=== PATIENT | male | born 1995 | race Caucasian/White ===

== ENCOUNTER 2020-11-29 13:38 | Emergency (ER) | payer MEDICAID ==
[~2020-11-29] VITALS: Ht 188 cm; Wt 84.0 kg
[2020-11-29] MEDS ORDERED: SODIUM CHLORIDE 0.9% 1,000 ML IV ONE (14:30)
[2020-11-29] MEDS ORDERED: ONDANSETRON HCL 4MG/2ML INJ IV ONE (14:30)
[2020-11-29 15:37] LABS: *BARBITURATES SCREEN URINE NEGATIVE (NEGATIVE)
[2020-11-29 15:38] LABS: *AMPHETAMINES SCREEN URINE NEGATIVE (NEGATIVE); *BENZODIAZEPINES SCREEN URINE PRESUMTIVE POSITIVE (NEGATIVE); *COCAINE SCREEN URINE NEGATIVE (NEGATIVE); METHADONE URINE SCREEN NEGATIVE (NEGATIVE); OPIATES URINE SCREEN NEGATIVE (NEGATIVE); PHENCYCLIDINE URINE SCREEN NEGATIVE (NEGATIVE)
[2020-11-29 15:39] LABS: CANNABINOID URINE SCREEN PRESUMTIVE POSITIVE (NEGATIVE)
[2020-11-29 17:21] VITALS: BP 122/75
== END 2020-11-29 17:27 | disposition home or self-care (01) ==
LOC: ER 13:38
DX: T40.2X1A Poisoning by other opioids, accidental (unintentional), initial encounter (principal); Z90.49 Acquired absence of other specified parts of digestive tract; Y92.9 Unspecified place or not applicable
CPT/HCPCS: 36415; 80305; 80320; 93005; 96361; 96374; 99284; J2405; J7030; Z7610; G0480

== ENCOUNTER 2022-10-13 18:08 | Emergency (ER) | payer SELFPAY ==
[~2022-10-13] VITALS: Ht 188 cm; Wt 81.6 kg
[2022-10-13 18:40] VITALS: BP 118/75; PULSE 60; RESP 16; TEMP 98.5; O2SAT 99
[2022-10-13 19:24] LABS: BASOPHILS % 0.8 % (0.0-2.0); EOSINOPHILS % 4.9 % (0.0-5.0); HEMATOCRIT. 36.7 % (42.0-52.0); HEMOGLOBIN. 12.4 g/dL (14.0-18.0); LYMPHOCYTES % 26.1 % (20.0-50.0); MEAN CORPUSCULAR HEMOGLOBIN 28.5 pg (28.0-32.0); MEAN CORPUSCULAR HGB CONC 33.8 g/dL (31.0-37.0); MEAN CORPUSCULAR VOLUME 84.5 fL (80.0-94.0); MEAN PLATELET VOLUME 8.2 fl (7.4-10.4); MONOCYTES % 5.7 % (2.0-8.0); NEUTROPHILS % 62.5 % (40.0-76.0); PLATELET 289 x1000/uL (130-400); RED BLOOD CELL COUNT 4.35 mill/uL (4.7-6.1); RED CELL DISTRIBUTION WIDTH 13.5 % (11.6-14.6); WHITE BLOOD COUNT 10.1 x1000/uL (4.5-11.0)
[2022-10-13 19:29] LABS: CHLORIDE 103 mEq/L (98-107); INDEX HEMOLYSI 1 (1-3); INDEX ICTERIC 1 (1-4); INDEX LIPEMIC 1 (1-3); POTASSIUM 4.1 mEq/L (3.5-5.1); SODIUM 138 mEq/L (136-145)
[2022-10-13 19:37] LABS: ALANINE AMINOTRANSFERASE 19 IU/L (13-61); ALBUMIN 3.8 g/dL (3.4-5.0); ASPARTATE AMINOTRANSFERASE 11 IU/L (15-37); BILIRUBIN TOTAL 0.3 mg/dL (0.1-1.0); CALCIUM 9.1 mg/dL (8.5-10.1); CARBON DIOXIDE 31 mEq/L (21-32); CREATININE 0.8 mg/dL (0.6-1.3); GLUCOSE 95 mg/dL (70-105); PROTEIN TOTAL 7.4 g/dL (6.0-8.3); UREA NITROGEN BLOOD 16 mg/dL (7-21)
== END 2022-10-13 22:29 | disposition home or self-care (01) ==
LOC: ER 18:08
DX: R10.31 Right lower quadrant pain (principal); N43.3 Hydrocele, unspecified; I86.1 Scrotal varices; N50.811 Right testicular pain; F12.90 Cannabis use, unspecified, uncomplicated; Z90.49 Acquired absence of other specified parts of digestive tract
CPT/HCPCS: 36415; 76870; 80053; 85025; 93976; 99284

== ENCOUNTER 2023-10-07 09:34 | Emergency (ER) | payer SELFPAY ==
[~2023-10-07] VITALS: Ht 185.4 cm; Wt 79.0 kg
[2023-10-07 09:38] VITALS: O2SAT 99
[2023-10-07 09:56] LABS: CLARITY URINE CLEAR (CLEAR); COLOR URINE DARK YELLOW (YELLOW); GLUCOSE URINE NEGATIVE (NEGATIVE); KETONES URINE TRACE (NEGATIVE); LEUKOCYTE ESTERASE URINE NEGATIVE (NEGATIVE); NITRITE URINE NEGATIVE (NEGATIVE); OCCULT BLOOD URINE NEGATIVE (NEGATIVE); PROTEIN URINE TRACE (NEGATIVE); SPECIFIC GRAVITY URINE 1.034 (1.005-1.030)
[2023-10-07] MEDS: SODIUM CHLORIDE 0.9% 1,000 ML IV ONE (10:03)
[2023-10-07 10:08] LABS: BASOPHILS % 0.3 % (0.0-2.0); EOSINOPHILS % 2.8 % (0.0-5.0); HEMATOCRIT. 46.2 % (42.0-52.0); HEMOGLOBIN. 15.7 g/dL (14.0-18.0); LYMPHOCYTES % 16.3 % (20.0-50.0); MEAN CORPUSCULAR HEMOGLOBIN 30.4 pg (28.0-32.0); MEAN CORPUSCULAR VOLUME 89.4 fL (80.0-94.0); MEAN PLATELET VOLUME 7.9 fl (7.4-10.4); MONOCYTES % 8.8 % (2.0-8.0); NEUTROPHILS % 71.8 % (40.0-76.0); PLATELET 271 x1000/uL (130-400); RED BLOOD CELL COUNT 5.16 mill/uL (4.7-6.1); RED CELL DISTRIBUTION WIDTH 14.3 % (11.6-14.6); WHITE BLOOD COUNT 9.8 x1000/uL (4.5-11.0)
[2023-10-07] MEDS: KETOROLAC 30MG/ML VIAL IV ONE (10:08)
[2023-10-07 10:12] LABS: BACTERIA URINE 1+; SQUAMOUS EPITHELIAL CELL URINE 1+ /lpf (RARE/1+)
[2023-10-07 10:13] LABS: MUCUS URINE 2+ /lpf (NONE/TRACE); YEAST URINE NONE SEEN
[2023-10-07 10:14] LABS: CHLORIDE 103 mEq/L (98-107); POTASSIUM 3.5 mEq/L (3.5-5.1); SODIUM 138 mEq/L (136-145)
[2023-10-07 10:15] LABS: CALCIUM 9.4 mg/dL (8.7-10.4); CARBON DIOXIDE 30 mEq/L (21-32)
[2023-10-07 10:20] LABS: GLUCOSE 96 mg/dL (70-105); UREA NITROGEN BLOOD 11 mg/dL (9-23)
[2023-10-07 10:24] LABS: INR 1.1; PROTHROMBIN TIME 11.9 sec (9.6-11.0)
[2023-10-07] MEDS: HYDROCODONE/ACETAMINOPHEN 7.5/325MG TABLET PO ONE (13:59)
[2023-10-07] MEDS ORDERED: TAMS-11 MT (14:18)
[2023-10-07] MEDS ORDERED: IBUP-1525 MT (14:18)
[2023-10-07] MEDS ORDERED: ONDA4TAB50 MT (14:18)
[2023-10-07] MEDS ORDERED: HYDR-4001 MT (14:18)
[2023-10-07] MEDS: AZITHROMYCIN 500 MG TABLET PO ONE (14:29)
[2023-10-07] MEDS: CEFTRIAXONE SODIUM 500MG VIAL IM ONE (14:29)
[2023-10-07] MEDS ORDERED: OLOP2.5D12 EACHEYE (14:38)
[2023-10-07 14:47] VITALS: BP 138/72; PULSE 80; RESP 18; TEMP 37.05852; O2SAT 98
[2023-10-09 06:08] LABS: CHLAMYDIA TRACHOMATIS NAA Negative (Negative); NEISSERIA GONORRHOEAE NAA Negative (Negative)
== END 2023-10-07 14:50 | disposition home or self-care (01) ==
LOC: ER 09:48
DX: N23 Unspecified renal colic (principal); F12.10 Cannabis abuse, uncomplicated; Z90.49 Acquired absence of other specified parts of digestive tract; Z79.899 Other long term (current) drug therapy
CPT/HCPCS: 87491; 87591; 80048; 81003; 83690; 85025; 85610; 36415; 93976; 76870; 96361; 96374; 99285; J0696; J1885; Z7610 ×4; J7030